=== PATIENT | female | born 1955 ===

== ENCOUNTER 2017-02-09 15:02 | Emergency (ER) | payer SELFPAY ==
[2017-02-09 15:25] VITALS: PULSE 83; RESP 18; O2SAT 98
[2017-02-09 15:32] VITALS: BP 161/87; TEMP 98
--- NOTE | 2017-02-09 15:47 | ED PDOC ---
Arrival/HPI - General Chief Complaint: High Blood Pressure Time Seen by Provider: 02/09/17 15:38 Historian: Patient - History of Present Illness Narrative History of Present Illness (Text): 02/09/17 15:40 This 62 yo female presents to this ED for evaluation of HTN. Patient stated she was seen by her dentist x 2 days ago. During dentist visit, her BP was found to be elevated. Dentist recommended her to have BP recheck by her doctor. Patient stated since she does not have doctor, she came to this Emergency Department. Patient stated she does not have any symptoms. She denies VALADEZ, dizziness, diplopia, dysarthria, vision changes, CP, SOB, abdominal pain, tinnitus, leg swelling, calf pain, recent travel, sick contact, recent illness, or abnormal gait. Time/Duration: Other (2 days) Context: Other (dentist) Past Medical History - Provider Review Nursing Documentation Reviewed: Yes - Infectious Disease Hx of Infectious Diseases: None - Reproductive Menopause: Yes - Cardiac Hx Cardiac Disorders: No Hx Angina: No Hx Atrial Fibrillation: No - Gastrointestinal Other/Comment: TUBAL LIGATION - Genitourinary/Gynecological Hx Genitourinary Disorders: No - Psychiatric Hx Substance Use: No - Anesthesia Hx Anesthesia: No Hx Anesthesia Reactions: No Family/Social History - Physician Review Nursing Documentation Reviewed: Yes Family/Social History: No Known Family HX Smoking Status: Never Smoked Hx Alcohol Use: No Frequency of alcohol use: Socially Hx Substance Use: No Allergies/Home Meds Allergies/Adverse Reactions: Allergies No Known Allergies Allergy (Verified 02/09/17 15:25) Home Medications: Home Meds Medication Instructions Recorded Confirmed Aspirin [Ecotrin] 81 mg pe PO DAILY 02/09/17 02/09/17 Review of Systems - Review of Systems Constitutional: Normal. absent: Fatigue, Weight Change, Fevers, Night Sweats Eyes: Normal ENT: Normal Respiratory: Normal. absent: SOB, Cough Cardiovascular: Normal. absent: Chest Pain, Edema, Calf Pain, HENNING Gastrointestinal: Normal. absent: Abdominal Pain, Nausea, Vomiting Genitourinary Female: Normal. absent: Dysuria, Frequency, Hematuria, Vaginal Bleeding, Vaginal Discharge Musculoskeletal: Normal Skin: Normal. absent: Rash Neurological: Normal. absent: Headache, Dizziness, Focal Weakness, Gait Changes , Speech Changes, Facial Droop, Disequilibrium, Seizure Endocrine: Normal Hemo/Lymphatic: Normal Psychiatric: Normal Physical Exam Vital Signs Temp Pulse Resp BP Pulse Ox 02/09/17 15:31 98.0 F 83 18 161/87 H 98 02/09/17 15:15 98 F 83 18 98 Temperature: Afebrile Blood Pressure: Hypertensive Pulse: Regular Respiratory Rate: Normal Appearance: Positive for: Well-Appearing, Non-Toxic, Comfortable Pain Distress: None Mental Status: Positive for: Alert and Oriented X 3 - Systems Exam Head: Present: Atraumatic, Normocephalic Pupils: Present: PERRL Extroacular Muscles: Present: EOMI Conjunctiva: Present: Normal Mouth: Present: Moist Mucous Membranes Neck: Present: Normal Range of Motion, Trachea Midline. No: Meningeal Signs, MIDLINE TENDERNESS, Paraspinal Tenderness, Lymphadenopathy Respiratory/Chest: Present: Clear to Auscultation, Good Air Exchange. No: Respiratory Distress, Accessory Muscle Use, Wheezes, Retracting, Rhonchi Cardiovascular: Present: Regular Rate and Rhythm, Normal S1, S2. No: Murmurs Abdomen: Present: Normal Bowel Sounds. No: Tenderness, Distention, Peritoneal Signs Back: Present: Normal Inspection Upper Extremity: Present: Normal Inspection, Normal ROM, NORMAL PULSES, Neurovascularly Intact, Capillary Refill < 2s. No: Cyanosis, Edema Lower Extremity: Present: Normal Inspection, NORMAL PULSES, Normal ROM, Neurovascularly Intact, Capillary Refill < 2 s. No: Edema, CALF TENDERNESS, Cyanosis, Khanh's Sign, Tenderness, Swelling, Erythema, Temperature Abnormalties Neurological: Present: GCS=15, CN II-XII Intact, Speech Normal, Motor Func Grossly Intact, Normal Sensory Function, Normal Cerebellar Funct, Norm Deep Tendon Reflexes, Gait Normal, Memory Normal, Other (Mo neuro focal deficits) Skin: Present: Warm, Dry, Normal Color. No: Rashes Psychiatric: Present: Alert, Oriented x 3, Normal Insight, Normal Concentration Medical Decision Making ED Course and Treatment: 02/09/17 16:03 Re-evaluation. Patient feels better. Discussed results and plan with patient who expresses understanding. All questions answered and there is agreement with the plan to discharge home with instructions. Patient stable for discharge. Return if symptoms persist or worsen. Patient remained asymptomatic during the course o ED visit. Vital signs are stable. Lungs CTA b/l. Denies sob, valadez, diplopia, or cp. Re-evaluation Time: 16:05 Reassessment Condition: Re-examined, Unchanged Disposition/Present on Arrival - Present on Arrival Any Indicators Present on Arrival: No History of DVT/PE: No History of Uncontrolled Diabetes: No Urinary Catheter: No History of Decub. Ulcer: No History Surgical Site Infection Following: None - Disposition Have Diagnosis and Disposition been Completed?: Yes Diagnosis: Asymptomatic hypertension Disposition: HOME/ ROUTINE Disposition Time: 16:07 Patient Plan: Discharge Condition: GOOD Discharge Instructions (ExitCare): Hypertension (ED) Additional Instructions: Call private doctor for follow up visit in 1-2 days. Call [facility] to help you set up an appointment with clinic. Low salt diet till evaluated by clinic doctor. Return to emergency if symptoms may arise. Referrals: PCP,NO [Primary Care Provider] - Follow up with primary [facility] [Outside] - Follow up with primary [facility] [Outside] - Follow up with primary
== END 2017-02-09 16:15 | disposition home or self-care (01) ==
LOC: ED 15:02
DX: I10 Essential (primary) hypertension (principal)